=== PATIENT | female | born 1955 | race Caucasian/White ===

== ENCOUNTER 2022-01-17 18:35 | Emergency (ER) | payer OTHER ==
[2022-01-17 18:52] VITALS: BP 159/78; PULSE 70; RESP 20; TEMP 98.2; BMI 38.1
[2022-01-17] MEDS ORDERED: ACETAMINOPHEN 500 MG TABLET (FP) PO ONE (19:30)
[2022-01-17] MEDS ORDERED: TRANEXAMIC ACID 1000 MG/10 ML VIAL IVPUSH ONE (20:08)
[2022-01-17] MEDS ORDERED: ACETAMINOPHEN 500 MG TABLET (FP) ONE (20:23)
[2022-01-17] MEDS ORDERED: TRANEXAMIC ACID 1000 MG/10 ML VIAL ONE (20:24)
[2022-01-17] MEDS ORDERED: OXYMETAZOLINE 0.05% NASAL SOLUTION 15 ML BOTTLE NS ONE (21:14)
== END 2022-01-17 21:37 | disposition home or self-care (01) ==
LOC: FER 18:35
PROC: 3E033GC Introduction of Other Therapeutic Substance into Peripheral Vein, Percutaneous Approach (ICD-10-PCS; principal; 2022-01-17)
DX: S00.83XA Contusion of other part of head, initial encounter (principal); W10.8XXA Fall (on) (from) other stairs and steps, initial encounter
CPT/HCPCS: 70450-TC; 70486-TC; 72125-TC; 99285-25